=== PATIENT | female | born 1960 | race Caucasian/White ===

== ENCOUNTER 2022-03-15 20:59 | Emergency (ER) | payer OTHER, MEDICAID ==
[~2022-03-15] VITALS: Ht 160 cm; Wt 77.1 kg
[2022-03-15 21:07] VITALS: BP_SYST 122
[2022-03-15] MEDS ORDERED: NS 500 ML IV ONE (21:30)
[2022-03-15 21:55] LABS: BASOPHILS % (AUTO) 0.5 % (0.0-2.0); EOSINOPHILS % (AUTO) 0.1 % (0.0-4.0); HEMATOCRIT 33.4 % (36-48); HEMOGLOBIN 11.5 g/dL (12.0-16.0); LYMPHOCYTES # (AUTO) 0.7 K/uL (1.0-5.5); LYMPHOCYTES % (AUTO) 13.3 % (20.5-51.5); MEAN CORPUSCULAR HEMOGLOBIN 31 pg (27-31); MEAN CORPUSCULAR HGB CONC 35 % (32-36); MEAN CORPUSCULAR VOLUME 90 fL (79.0-98.0); MONOCYTES # (AUTO) 1.2 K/uL (0.0-1.0); MONOCYTES % (AUTO) 23.2 % (1.7-9.3); NEUTROPHILS # (AUTO) 3.2 K/uL (1.8-7.7); NEUTROPHILS % (AUTO) 62.9 % (40.0-70.0); PLATELET COUNT (AUTO) 149 K/uL (130-430); RED BLOOD CELL COUNT(AUTO) 3.73 MIL/uL (4.2-6.2); RED CELL DISTRIBUTION WIDTH 13.5 % (9.0-15.0); WHITE BLOOD COUNT (AUTO) 5.1 K/uL (4.8-10.8)
[2022-03-15 22:13] LABS: ANION GAP 6 (5-15); CALCIUM 8.8 mg/dL (8.4-11.0); CHLORIDE 97 mmol/L (98-107); GFR AFRICAN AMERICAN 93 mL/min (>90); GLUCOSE 116 mg/dL (70-99); UREA NITROGEN, BLOOD 18 mg/dL (8-21)
[2022-03-15 22:18] LABS: ALANINE AMINOTRANSFERASE 9 U/L (12-78); ALBUMIN 3.1 g/dL (3.4-4.8); ASPARTATE AMINOTRANSFERASE 18 U/L (10-37); TOTAL BILIRUBIN 0.2 mg/dL (0.0-1.0)
[2022-03-15 22:21] LABS: ALCOHOL, BLOOD < 3 mg/dL (<10)
[2022-03-16] MEDS ORDERED: DIVA250T PO (00:31)
[2022-03-16] MEDS ORDERED: SIMV-343 PO (00:32)
[2022-03-16] MEDS ORDERED: DIVA500T4 PO (00:33)
[2022-03-16] MEDS ORDERED: BENA10TA73 PO (00:33)
[2022-03-16] MEDS ORDERED: BENZ2TAB65 PO (00:35)
--- NOTE | 2022-03-16 00:57 | NUR ---
CONTACTED POISON CONTROL, RECOMMENDED FOR TOXICOLOGY TO HOLD FOR 6 HRS, nsr ekg. PC STATED THAT IF PT WAS HYPOTENSIVE AND TACHY WOULD BE MORE OF A CONCERN. MD FRIEDMAN
[2022-03-16] MEDS ORDERED: LORazepam 2 MG/ML VIAL IVP ONE (01:30)
[2022-03-16 02:46] LABS: BILIRUBIN,URINE NEGATIVE (NEGATIVE); CLARITY/URINE CLEAR (CLEAR); COLOR,URINE YELLOW (YELLOW); GLUCOSE,URINE NEGATIVE (NEGATIVE); KETONES,URINE TRACE (NEGATIVE); LEUKOCYTE ESTERASE ,URINE NEGATIVE (NEGATIVE); NITRITE, URINE NEGATIVE (NEGATIVE); PH,URINE 6.5 (5.0-8.0); PROTEIN URINE NEGATIVE (NEGATIVE); UROBILINOGEN,URINE 0.2 (0.2-1.0)
[2022-03-16 02:58] LABS: BLOOD, URINE TRACE (NEGATIVE)
[2022-03-16 03:00] LABS: BARBITURATE, URINE NEGATIVE (NEG <=200); BENZODIAZEPINE, URINE NEGATIVE (NEG <=150); CANNABINOID, URINE NEGATIVE (NEG <=50); COCAINE, URINE NEGATIVE (NEG <=150); METHAMPHETAMINES SCREEN,URINE NEGATIVE (NEG <=500); OPIATE, URINE NEGATIVE (NEG <=100); PHENCYCLIDINE SCREEN,URINE NEGATIVE (NEG <=25); UR TRICYCLIC ANTIDEPRESSANTS NEGATIVE (NEG <=300); URINE AMPHETAMINE NEGATIVE (NEG <=500); URINE METHADONE NEGATIVE (NEG <=200); URINE OXYCODONE SCREEN NEGATIVE (NEG <=100); URINE PROPOXYPHENE SCREEN NEGATIVE (NEG <=300)
[2022-03-16 03:58] LABS: BACTERIA,URINE None Seen /HPF (None Seen); MUCUS,URINE None Seen /LPF (None Seen)
[2022-03-16 04:58] VITALS: BP_SYST 164
--- NOTE | 2022-03-16 05:30 | NUR ---
DISCHARGED HOME. SISTER PICKED UP PT KRYSTA VELAZQUEZ.
== END 2022-03-16 05:30 | disposition home or self-care (01) ==
LOC: SED 20:59 → EDBD 20:59 → SED 03-16 05:30
DX: T43.3X1A Poisoning by phenothiazine antipsychotics and neuroleptics, accidental (unintentional), initial encounter (principal); E11.9 Type 2 diabetes mellitus without complications; R41.82 Altered mental status, unspecified; Z79.899 Other long term (current) drug therapy; Y92.89 Other specified places as the place of occurrence of the external cause
CPT/HCPCS: 99284; 80307; 80053; 85025; 36415; 93005; 81000; 96374; G0482; J2060

== ENCOUNTER 2023-06-16 10:13 | Emergency (ER) | payer OTHER, MEDICAID ==
[~2023-06-16] VITALS: Ht 149.9 cm; Wt 85.7 kg
[~2023-06-16 10:13] MED LIST: BENA10TA73 PO; BENZ2TAB7 PO; DIVA250T PO; DIVA500T4 PO; HYDR-3917 PO; SIMV-343 PO
[2023-06-16 10:58] VITALS: BP_SYST 176; PULSE 79; RESP 16; TEMP 97.2; O2SAT 99
[2023-06-16 11:25] LABS: BASOPHILS % (AUTO) 0.5 % (0.0-2.0); EOSINOPHILS # (AUTO) 0.1 K/uL (0.0-0.4); EOSINOPHILS % (AUTO) 1.3 % (0.0-4.0); HEMATOCRIT 33.8 % (36-48); HEMOGLOBIN 11.5 g/dL (12.0-16.0); LYMPHOCYTES # (AUTO) 1.4 K/uL (1.0-5.5); LYMPHOCYTES % (AUTO) 23.9 % (20.5-51.5); MEAN CORPUSCULAR HEMOGLOBIN 30 pg (27-31); MEAN CORPUSCULAR HGB CONC 34 % (32-36); MEAN CORPUSCULAR VOLUME 89 fL (79.0-98.0); MONOCYTES # (AUTO) 0.5 K/uL (0.0-1.0); NEUTROPHILS # (AUTO) 3.8 K/uL (1.8-7.7); NEUTROPHILS % (AUTO) 65.3 % (40.0-70.0); PLATELET COUNT (AUTO) 218 K/uL (130-430); RED CELL DISTRIBUTION WIDTH 13.2 % (9.0-15.0); WHITE BLOOD COUNT (AUTO) 5.8 K/uL (4.8-10.8)
[2023-06-16 11:41] LABS: CALCIUM 8.5 mg/dL (8.4-11.0); CREATININE 0.7 mg/dL (0.55-1.30); POTASSIUM 3.2 mmol/L (3.5-5.1)
[2023-06-16 11:44] LABS: URIC ACID 4.2 mg/dL (2.4-7.0)
[2023-06-16] MEDS ORDERED: DICL75TA5 PO (12:12)
[2023-06-16 16:06] VITALS: BP_SYST 176; PULSE 79; RESP 16; TEMP 97.2; O2SAT 99
== END 2023-06-16 12:26 | disposition home or self-care (01) ==
LOC: SED 10:13
DX: M17.12 Unilateral primary osteoarthritis, left knee (principal); E11.9 Type 2 diabetes mellitus without complications; I10 Essential (primary) hypertension; Z79.899 Other long term (current) drug therapy
CPT/HCPCS: 36415; 73560; 80048; 84550; 85025; 99284